=== PATIENT | female | born 1935 | race Caucasian/White ===

== ENCOUNTER 2020-04-21 16:09 | Emergency (ER) | payer OTHER ==
[~2020-04-21] VITALS: Ht 162.6 cm; Wt 101.6 kg
[~2020-04-21 16:09] MED LIST: LEVOTHYROID
[2020-04-21 16:35] VITALS: BP 133/67
--- NOTE | 2020-04-21 18:13 | NUR ---
COVID SWAB COLLECTED.
[2020-04-21 18:22] VITALS: BP 133/67
--- NOTE | 2020-04-21 18:22 | NUR ---
Patient discharged with v/s stable. Written and verbal after care instructions given and explained. Patient alert, oriented and verbalized understanding of instructions. Ambulatory with steady gait. All questions addressed prior to discharge. ID band removed. Patient advised to follow up with PMD. Rx of albuterol, Prednisone 20mg, Promethazine 6.25mg, Tylenol 325mg given. Patient educated on indication of medication including possible reaction and side effects. Opportunity to ask questions provided and answered.
== END 2020-04-21 18:22 | disposition home or self-care (01) ==
LOC: MED 16:09
DX: U07.1 COVID-19 (principal); J45.909 Unspecified asthma, uncomplicated; I10 Essential (primary) hypertension; Z98.890 Other specified postprocedural states
CPT/HCPCS: 71045; 99284; U0003